=== PATIENT | male | born 1980 | race Hispanic/Latino ===

== ENCOUNTER 2019-12-18 21:09 | Emergency (ER) | payer SELFPAY ==
--- NOTE | 2019-12-18 21:44 | EDPHYS ---
Physician Documentation [facility] Name: Curtis Cantu Age: 39 yrs Sex: Male : 1980 Arrival Date: 12/18/2019 Time: 21:11 Bed 13 Private MD: ED Physician Ciaran Rodas HPI: 12/17 21:46 This 39 yrs old Male presents to ER via Ambulatory with complaints of Eye jr8 Problem, facial twitching. 21:46 Onset: The symptoms/episode began/occurred gradually, 2 day(s) ago. Severity of jr8 symptoms: At their worst the symptoms were mild in the emergency department the symptoms are unchanged. The patient has experienced a previous episode. The patient has not recently seen a physician. 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 Started to have some of the sensations that he had the last time. Also has been having eye and facial twitching when he stresses out since he had bells palsy. Concerned that he may be getting it again . Historical: - Allergies: 21:32 No Known Allergies; vc - Home Meds: 21:32 FOR HIGH BLOOD PRESSURE [Active]; FOR PAULA'S PALSY [Active]; vc - PMHx: 21:32 Hypertension; TIA; PAULA'S PALSY; vc - Immunization history:: Adult Immunizations up to date. - Social history:: Smoking status: Patient reports the use of cigarette tobacco products, smokes one-half pack cigarettes per day. ROS: 21:46 Eyes: Negative for injury, pain, redness, and discharge, ENT: Negative for injury, jr8 pain, and discharge, Neck: Negative for injury, pain, and swelling, Cardiovascular: Negative for chest pain, palpitations, and edema, Respiratory: Negative for shortness of breath, cough, wheezing, and pleuritic chest pain, Abdomen/GI: Negative for abdominal pain, nausea, vomiting, diarrhea, and constipation, Back: Negative for injury and pain, MS/Extremity: Negative for injury and deformity, Skin: Negative for injury, rash, and discoloration. 21:46 Neuro: Positive for facial fasciculations , Negative for altered mental status, dizziness, gait disturbance, headache, hearing loss, loss of consciousness, numbness, seizure activity, speech changes, syncope, near syncope, tingling, tinnitus, tremor, visual changes, weakness. Exam: 21:46 Head/Face: Normocephalic, atraumatic. Eyes: Pupils equal round and reactive to light, jr8 extra-ocular motions intact. Lids and lashes normal. Conjunctiva and sclera are non-icteric and not injected. Cornea within normal limits. Periorbital areas with no swelling, redness, or edema. ENT: Nares patent. No nasal discharge, no septal abnormalities noted. Tympanic membranes are normal and external auditory canals are clear. Oropharynx with no redness, swelling, or masses, exudates, or evidence of obstruction, uvula midline. Mucous membranes moist. Neck: Trachea midline, no thyromegaly or masses palpated, and no cervical lymphadenopathy. Supple, full range of motion without nuchal rigidity, or vertebral point tenderness. No Meningismus. Cardiovascular: Regular rate and rhythm with a normal S1 and S2. No gallops, murmurs, or rubs. Normal PMI, no JVD. No pulse deficits. Respiratory: Lungs have equal breath sounds bilaterally, clear to auscultation and percussion. No rales, rhonchi or wheezes noted. No increased work of breathing, no retractions or nasal flaring. Abdomen/GI: Soft, non-tender, with normal bowel sounds. No distension or tympany. No guarding or rebound. No evidence of tenderness throughout. Back: No spinal tenderness. No costovertebral tenderness. Full range of motion. Skin: Warm, dry with normal turgor. Normal color with no rashes, no lesions, and no evidence of cellulitis. MS/ Extremity: Pulses equal, no cyanosis. Neurovascular intact. Full, normal range of motion. Neuro: Awake and alert, GCS 15, oriented to person, place, time, and situation. Cranial nerves II-XII grossly intact. Motor strength 5/5 in all extremities. Sensory grossly intact. Cerebellar exam normal. Normal gait. Vital Signs: 21:22 BP 160 / 96; Pulse 84; Resp 17; Temp 97.9(O); Pulse Ox 99% on R/A; Weight 99.79 kg; vc Height 6 ft. (182.88 cm); Pain 0/10; 21:22 Body Mass Index 29.84 (99.79 kg, 182.88 cm) vc MDM: 21:30 Patient medically screened. [facility] 21:46 Data reviewed: vital signs, nurses notes, and as a result, I will discharge patient. jr8 Data interpreted: Pulse oximetry: on room air is 99 %. Interpretation: normal. Counseling: I had a detailed discussion with the patient and/or guardian regarding: the historical points, exam findings, and any diagnostic results supporting the discharge/admit diagnosis, the need for outpatient follow up, a family practitioner, to return to the emergency department if symptoms worsen or persist or if there are any questions or concerns that arise at home. ED course: Discussed with patient that he needs to try and rid some of his stress as best as possible. That we cannot control whether or not he can get bells palsy again but that stress can contribute to it. Will give him steroids to take if he starts to truly have s/s of [place] again but otherwise will give benzo for twitching and stress for now to see if it improves. Patient good with this plan . Administered Medications: No medications were administered Disposition: 23:38 Co-signature as Attending Physician, Ciaran Rodas MD. [email or web address] Disposition: 12/18/19 21:44 Discharged to Home. Impression: Fasciculation. - Condition is Stable. - Discharge Instructions: Paula Palsy, Adult. - Prescriptions for Ativan 0.5 mg Oral Tablet - take 1 tablet by ORAL route every 8 hours As needed; 12 tablet. Prednisone 20 mg Oral Tablet - take 3 tablets by ORAL route once daily for 7 days; 21 tablet. - Medication Reconciliation Form, Thank You Letter, Antibiotic Education, Prescription Opioid Use form. - Follow up: Private Physician; When: As needed; Reason: Recheck today's complaints, Continuance of care, Re-evaluation by your physician. - Problem is new. - Symptoms have improved. Signatures: Raul Meza PA PA jr8 Maisha Ruvalcaba RN RN Ciaran Turcios MD MD 7 Corrections: (The following items were deleted from the chart) 21:49 21:44 12/18/2019 21:44 Discharged to Home. Impression: Fasciculation. Condition is vc Stable. Forms are Medication Reconciliation Form, Thank You Letter, Antibiotic Education, Prescription Opioid Use. Follow up: Private Physician; When: As needed; Reason: Recheck today's complaints, Continuance of care, Re-evaluation by your physician. Problem is new. Symptoms have improved. jr8
--- NOTE | 2019-12-18 21:44 | ER ---
Nurse's Notes [facility] Name: Curtis Cantu Age: 39 yrs Sex: Male : 1980 Arrival Date: 12/18/2019 Time: 21:11 Bed 13 Private MD: Diagnosis: Fasciculation Presentation: 12/17 21:22 Chief complaint: Patient states: "On March 27 I had a mini stroke which caused me vc to have bells palsy, I was put on medication to help with the bells palsy and my blood pressure. I moved here about 6 months ago and have not had my medications since. I've started having muscle twitching on the left side of my face and left I, I just wanted to get it checked out. I don't want the left side of my face drooping again.". Coronavirus screen: At this time, the client does not indicate any symptoms associated with coronavirus-19. Ebola Screen: No symptoms or risks identified at this time. Initial Sepsis Screen: Does the patient meet any 2 criteria? No. Patient's initial sepsis screen is negative. Does the patient have a suspected source of infection? No. Patient's initial sepsis screen is negative. Risk Assessment: Do you want to hurt yourself or someone else? Patient reports no desire to harm self or others. Onset of symptoms was December 18, 2019. 21:22 Method Of Arrival: Ambulatory vc 21:22 Acuity: GEOFF 4 vc Historical: - Allergies: 21:32 No Known Allergies; vc - Home Meds: 21:32 FOR HIGH BLOOD PRESSURE [Active]; FOR POLLARD'S PALSY [Active]; vc - PMHx: 21:32 Hypertension; TIA; POLLARD'S PALSY; vc - Immunization history:: Adult Immunizations up to date. - Social history:: Smoking status: Patient reports the use of cigarette tobacco products, smokes one-half pack cigarettes per day. Screenin:33 Abuse screen: Denies threats or abuse. Nutritional screening: No deficits noted. vc Tuberculosis screening: No symptoms or risk factors identified. Fall Risk None identified. Assessment: 21:20 General: Appears in no apparent distress. comfortable, Behavior is calm, cooperative, vc appropriate for age. Pain: Denies pain. Neuro: Level of Consciousness is awake, alert, obeys commands, Oriented to person, place, time, situation, Appropriate for age Speech is normal, Facial symmetry appears normal, TWITCHING NOTED TO LEFT SIDE OF FACE WHEN PATIENT CLOSED LEFT EYE.. 21:20 Cardiovascular: Capillary refill < 3 seconds Patient's skin is warm and dry. vc Respiratory: Airway is patent Respiratory effort is even, unlabored, Respiratory pattern is regular, symmetrical. GI: No signs and/or symptoms were reported involving the gastrointestinal system. : No signs and/or symptoms were reported regarding the genitourinary system. Vital Signs: 21:22 BP 160 / 96; Pulse 84; Resp 17; Temp 97.9(O); Pulse Ox 99% on R/A; Weight 99.79 kg; vc Height 6 ft. (182.88 cm); Pain 0/10; 21:22 Body Mass Index 29.84 (99.79 kg, 182.88 cm) vc ED Course: 21:11 Patient arrived in ED. am2 21:14 Maisha Ruvalcaba RN is Primary Nurse. vc 21:20 Arm band placed on. vc 21:20 Patient has correct armband on for positive identification. Bed in low position. Call vc light in reach. Pulse ox on. NIBP on. 21:26 Triage completed. vc 21:30 Raul Meza PA is PHCP. jr8 21:30 Ciaran Rodas MD is Attending Physician. jr8 21:48 No provider procedures requiring assistance completed. Patient did not have IV access vc during this emergency room visit. Administered Medications: No medications were administered Outcome: 21:44 Discharge ordered by . jr8 21:48 Discharged to home ambulatory. vc 21:48 Condition: good 21:48 Discharge instructions given to patient, Instructed on discharge instructions, follow up and referral plans. medication usage, Demonstrated understanding of instructions, follow-up care, medications, Prescriptions given X 2. 21:49 Patient left the ED. vc Signatures: Raul Meza PA PA jr8 Dora You am2 Maisha Ruvalcaba RN RN vc
[2019-12-18 23:53] VITALS: BP 160/96; TEMP 97.9; O2SAT 99
== END 2019-12-18 21:49 | disposition home or self-care (01) ==
LOC: ER 21:09
DX: R25.3 Fasciculation (principal); I10 Essential (primary) hypertension; F17.210 Nicotine dependence, cigarettes, uncomplicated
CPT/HCPCS: 99283

== ENCOUNTER 2020-06-26 13:44 | Emergency (ER) | payer OTHER, SELFPAY ==
[2020-06-26 15:59] LABS: SARS-COV-2 RT PCR NEGATIVE (NEGATIVE)
--- NOTE | 2020-06-26 16:52 | EDPHYS ---
Physician Documentation [facility] Name: Curtis Cantu Age: 39 yrs Sex: Male : 1980 Arrival Date: 06/26/2020 Time: 13:46 Bed 23 Private MD: ED Physician Tacho Hendrix HPI: 06/26 18:52 This 39 yrs old Male presents to ER via Ambulatory with complaints of kb Weakness, Fever. 18:52 The patient or guardian reports flu symptoms, low-grade fever, myalgias, no appetite. kb Onset: The symptoms/episode began/occurred 2 day(s) ago. Severity of symptoms: At their worst the symptoms were moderate, in the emergency department the symptoms are unchanged. Modifying factors: The symptoms are alleviated by nothing, the symptoms are aggravated by nothing. Associated signs and symptoms: Pertinent positives: fever, Pertinent negatives: chest pain, diarrhea, ear ache, nausea, rhinorrhea, sore throat, vomiting. The patient has not experienced similar symptoms in the past. The patient has not recently seen a physician. Pt reports bodyaches, fever, chills, malaise, fatigue for 2 days. States he gets these symptoms every 2 months or so. Has a dr's appt tomorrow. Historical: - Allergies: 14:14 No Known Allergies; ca1 - PMHx: 14:14 Paula's Palsy; Hypertension; TIA; ca1 - PSHx: 14:14 None; ca1 - Immunization history:: Flu vaccine is not up to date. - Social history:: Smoking status: Patient reports the use of cigarette tobacco products, denies chronic smoking, but will smoke occasionally. ROS: 18:50 Cardiovascular: Negative for chest pain, palpitations, and edema, Respiratory: Negative kb for shortness of breath, cough, wheezing, and pleuritic chest pain, Abdomen/GI: Negative for abdominal pain, nausea, vomiting, diarrhea, and constipation, MS/Extremity: Negative for injury and deformity, Skin: Negative for injury, rash, and discoloration, Neuro: Negative for headache, weakness, numbness, tingling, and seizure. 18:50 Constitutional: Positive for body aches, chills, fatigue, fever, malaise, poor PO intake. Exam: 18:52 Constitutional: This is a well developed, well nourished patient who is awake, alert, kb and in no acute distress. Head/Face: Normocephalic, atraumatic. Respiratory: Respirations even and unlabored. No increased work of breathing, no retractions or nasal flaring. Skin: Warm, dry with normal turgor. Normal color. MS/ Extremity: Pulses equal, no cyanosis. Neurovascular intact. Full, normal range of motion. Neuro: Awake and alert, GCS 15, oriented to person, place, time, and situation. Moves all extremities. Normal gait. Vital Signs: 14:09 BP 128 / 89; Pulse 75; Resp 16 S; Temp 97.6(TE); Pulse Ox 96% on R/A; Weight 104.33 kg ca1 (R); Height 5 ft. 11 in. (180.34 cm) (R); Pain 7/10; 16:58 BP 132 / 91; Pulse 89; Resp 18; Pulse Ox 95% on R/A; zb 14:09 Body Mass Index 32.08 (104.33 kg, 180.34 cm) ca1 MDM: 16:40 Patient medically screened. kb 18:50 Data reviewed: vital signs, nurses notes. Data interpreted: Pulse oximetry: on room air kb is 95 %. Interpretation: normal. Counseling: I had a detailed discussion with the patient and/or guardian regarding: the historical points, exam findings, and any diagnostic results supporting the discharge/admit diagnosis, lab results, the need for outpatient follow up, a family practitioner, to return to the emergency department if symptoms worsen or persist or if there are any questions or concerns that arise at home. 06/26 15:59 Order name: COVID-19/FLU A+B; Complete Time: 16:41 EDMS Administered Medications: No medications were administered Disposition: 06/27 08:02 Co-signature as Attending Physician, Tacho Hendrix MD I agree with the assessment and kdr plan of care. Disposition: 06/26/20 16:51 Discharged to Home. Impression: Malaise and fatigue. - Condition is Stable. - Discharge Instructions: Viral Respiratory Infection, [id number]. - Medication Reconciliation Form, Thank You Letter, Antibiotic Education, Prescription Opioid Use form. - Follow up: Emergency Department; When: As needed; Reason: Worsening of condition. Follow up: Private Physician; When: 2 - 3 days; Reason: Recheck today's complaints, Continuance of care, Re-evaluation by your physician. Signatures: Dispatcher [employer] EDPA Jennifer Oliva, UTILITY MECHANIC-C UTILITY MECHANIC-Tacho Morgan MD MD kdr Acob, Cheryl, RN RN ca1 Estephania Chow RN RN zb Corrections: (The following items were deleted from the chart) 06/26 15:15 14:16 CORONAVIRUS+MR.LAB.BRZ ordered. EDPA EDMS 15:16 14:16 Influenza Screen (A \T\ B)+BA.LAB.BRZ ordered. EDPA EDMS 17:05 16:51 06/26/2020 16:51 Discharged to Home. Impression: Malaise and fatigue. Condition zb is Stable. Forms are Medication Reconciliation Form, Thank You Letter, Antibiotic Education, Prescription Opioid Use. Follow up: Emergency Department; When: As needed; Reason: Worsening of condition. Follow up: Private Physician; When: 2 - 3 days; Reason: Recheck today's complaints, Continuance of care, Re-evaluation by your physician. kb
--- NOTE | 2020-06-26 16:52 | ER ---
Nurse's Notes [facility] Name: Curtis Cantu Age: 39 yrs Sex: Male : 1980 Arrival Date: 06/26/2020 Time: 13:46 Bed 23 Private MD: Diagnosis: Malaise and fatigue Presentation: 06/26 14:09 Chief complaint: Patient states: Started Wednesday morning, feeling weak, sweats, ca1 fatigued, chills, body aches, cough and congestion. Denies fever. Coronavirus screen: Client denies travel out of the [place] in the last 14 days. congestion, cough unrelated to allergies, fatigue, muscle pain, Client presents with at least one sign or symptom that may indicate coronavirus-19. Standard/surgical mask placed on the client. Provider contacted for isolation considerations. Ebola Screen: Patient negative for fever greater than or equal to 101.5 degrees Fahrenheit, and additional compatible Ebola Virus Disease symptoms Patient denies exposure to infectious person. Patient denies travel to an Ebola-affected area in the 21 days before illness onset. No symptoms or risks identified at this time. Initial Sepsis Screen: Does the patient meet any 2 criteria? No. Patient's initial sepsis screen is negative. Does the patient have a suspected source of infection? No. Patient's initial sepsis screen is negative. Risk Assessment: Do you want to hurt yourself or someone else? Patient reports no desire to harm self or others. Onset of symptoms was June 26, 2020. 14:09 Method Of Arrival: Ambulatory ca1 14:09 Acuity: GEOFF 4 ca1 Historical: - Allergies: 14:14 No Known Allergies; ca1 - PMHx: 14:14 Paula's Palsy; Hypertension; TIA; ca1 - PSHx: 14:14 None; ca1 - Immunization history:: Flu vaccine is not up to date. - Social history:: Smoking status: Patient reports the use of cigarette tobacco products, denies chronic smoking, but will smoke occasionally. Screenin:58 Abuse screen: Denies threats or abuse. Denies injuries from another. Nutritional zb screening: No deficits noted. Tuberculosis screening: No symptoms or risk factors identified. Fall Risk None identified. Assessment: 16:56 General: Appears in no apparent distress. Behavior is calm, cooperative, appropriate zb for age, Reports chills for 1-2 days, fever for 1-2 days, feeling ill for 1-2 days. Pain: Denies pain. Neuro: Level of Consciousness is awake, alert, obeys commands. Cardiovascular: Capillary refill < 3 seconds in bilateral fingers Patient's skin is warm and dry. Respiratory: Airway is patent Respiratory effort is even, unlabored, Respiratory pattern is regular, symmetrical, Breath sounds are clear bilaterally. Respiratory: Reports shortness of breath on exertion cough that is dry, persistent. GI: No signs and/or symptoms were reported involving the gastrointestinal system. EENT: Reports nasal congestion. EENT:. Derm: Skin is intact, is healthy with good turgor, Skin is dry, Skin is normal, Skin temperature is warm. Musculoskeletal: Range of motion: intact in all extremities. Vital Signs: 14:09 BP 128 / 89; Pulse 75; Resp 16 S; Temp 97.6(TE); Pulse Ox 96% on R/A; Weight 104.33 kg ca1 (R); Height 5 ft. 11 in. (180.34 cm) (R); Pain 7/10; 16:58 BP 132 / 91; Pulse 89; Resp 18; Pulse Ox 95% on R/A; zb 14:09 Body Mass Index 32.08 (104.33 kg, 180.34 cm) ca1 ED Course: 13:46 Patient arrived in ED. as 14:13 Triage completed. ca1 14:14 Arm band placed on right wrist. ca1 16:40 Jennifer Oliva FNP-C is [facility]. kb 16:40 Tacho Hendrix MD is Attending Physician. kb 16:56 Estephania Chow RN is Primary Nurse. zb 16:58 Patient has correct armband on for positive identification. Pulse ox on. NIBP on. Door zb closed. Noise minimized. Warm blanket given. 16:59 No provider procedures requiring assistance completed. Patient did not have IV access zb during this emergency room visit. Administered Medications: No medications were administered Outcome: 16:51 Discharge ordered by . kb 16:59 Discharged to home ambulatory. zb 16:59 Condition: stable 16:59 Discharge instructions given to patient, Instructed on discharge instructions, follow up and referral plans. Demonstrated understanding of instructions, follow-up care. 17:05 Patient left the ED. zb Signatures: Jennifer Oliva FNP-C FNP-Erma Potts as AcYazmin javed RN RN ca1 Estephania Chow RN RN zb Corrections: (The following items were deleted from the chart) 16:59 16:59 Discharge instructions given to patient, Instructed on discharge instructions, zb follow up and referral plans. Demonstrated understanding of instructions, follow-up care, zb
[2020-06-26 17:15] VITALS: TEMP 97.6
[2020-06-26 17:17] VITALS: BP 132/91; O2SAT 95
== END 2020-06-26 17:05 | disposition home or self-care (01) ==
LOC: ER 13:44
DX: R53.81 Other malaise (principal); R53.83 Other fatigue; Z20.822 Contact with and (suspected) exposure to COVID-19; I10 Essential (primary) hypertension; F17.210 Nicotine dependence, cigarettes, uncomplicated
CPT/HCPCS: 0240U; 99283

== ENCOUNTER 2020-07-23 15:38 | Emergency (ER) | payer OTHER ==
[2020-07-23] MEDS ORDERED: LORAZEPAM 1 MG TABLET ONE (18:10)
--- NOTE | 2020-07-23 18:27 | ER ---
Nurse's Notes [facility] Name: Curtis Cantu Age: 39 yrs Sex: Male : 1980 Arrival Date: 07/23/2020 Time: 15:40 Bed DIS3 Private MD: Gagan Johnson Diagnosis: Anxiety disorder, unspecified Presentation: 07/23 16:12 Chief complaint: Patient states: is having anxiety and panic attacks, was prescribed iw some pills but they just make him feel worse, has been happening for 4-6 months. Coronavirus screen: At this time, the client does not indicate any symptoms associated with coronavirus-19. Ebola Screen: Patient negative for fever greater than or equal to 101.5 degrees Fahrenheit, and additional compatible Ebola Virus Disease symptoms Patient denies exposure to infectious person. Patient denies travel to an Ebola-affected area in the 21 days before illness onset. No symptoms or risks identified at this time. Initial Sepsis Screen: Does the patient meet any 2 criteria? No. Patient's initial sepsis screen is negative. Does the patient have a suspected source of infection? No. Patient's initial sepsis screen is negative. Risk Assessment: Do you want to hurt yourself or someone else? Patient reports no desire to harm self or others. Onset of symptoms was April 2020. 16:12 Method Of Arrival: Ambulatory iw 16:12 Acuity: GEOFF 4 iw Historical: - Allergies: 16:14 No Known Allergies; iw - PMHx: 16:14 Paula's Palsy; Hypertension; TIA; Anxiety; iw - PSHx: 16:14 foot; iw - Immunization history:: Adult Immunizations not up to date. - Social history:: Smoking status: Patient reports the use of cigarette tobacco products, denies chronic smoking, but will smoke occasionally. Screenin:17 Abuse screen: Denies threats or abuse. Denies injuries from another. Nutritional ss screening: No deficits noted. Tuberculosis screening: Never had TB. Fall Risk None identified. Assessment: 17:00 General: Appears in no apparent distress. comfortable, Behavior is calm, cooperative, ss Reports off and on anxiety for months. Pain: Denies pain. Neuro: Level of Consciousness is awake, alert, obeys commands, Oriented to person, place, time, situation. Cardiovascular: Capillary refill < 3 seconds is brisk in bilateral fingers Patient's skin is warm and dry. Respiratory: Airway is patent Respiratory effort is even, unlabored, Respiratory pattern is regular, symmetrical. GI: No signs and/or symptoms were reported involving the gastrointestinal system. EENT: Nares are clear Oral mucosa is moist. Derm: Skin is intact, is healthy with good turgor, Skin is dry, Skin is pink, warm \T\ dry. normal. Musculoskeletal: Circulation, motion, and sensation intact. Range of motion: intact in all extremities, Swelling absent. 18:35 Reassessment: Patient appears in no apparent distress at this time. Patient and/or ss family updated on plan of care and expected duration. Pain level reassessed. Patient is alert, oriented x 3, equal unlabored respirations, skin warm/dry/pink. Patient states feeling better. Patient states symptoms have improved. Vital Signs: 16:12 BP 140 / 106; Pulse 88; Resp 16; Temp 98.4; Pulse Ox 99% on R/A; Weight 104.33 kg; iw Height 5 ft. 11 in. (180.34 cm); 16:12 Body Mass Index 32.08 (104.33 kg, 180.34 cm) iw ED Course: 15:40 Patient arrived in ED. am2 15:40 Gagan Johnson MD is Private Physician. am2 16:13 Triage completed. iw 16:14 Arm band placed on. iw 17:00 Marquis Moraes PA is PHCP. jmm 17:00 Carroll Padron MD is Attending Physician. jmm 17:17 Patient has correct armband on for positive identification. Call light in reach. ss 17:17 Patient maintains SpO2 saturation greater than 95% on room air. ss 17:26 Naima Barillas, LEOLA is Primary Nurse. ss 18:26 Toño Esparza MD is Referral Physician. [facility] 18:36 No provider procedures requiring assistance completed. Patient did not have IV access ss during this emergency room visit. Administered Medications: 17:54 Drug: Ativan (LORazepam) 1 mg Route: PO; ss 18:15 Follow up: Response: No adverse reaction; Anxiety decreased ss Outcome: 18:27 Discharge ordered by MD. [facility] 18:36 Discharged to home ambulatory. ss 18:36 Condition: improved 18:36 Discharge instructions given to patient, family, Instructed on discharge instructions, follow up and referral plans. Demonstrated understanding of instructions, follow-up care. 18:40 Patient left the ED. ss Signatures: Marquis Moraes PA PA jmm Williams, Irene RN RN Naima Barillas RN RN Dora Whitmore
--- NOTE | 2020-07-23 18:28 | EDPHYS ---
Physician Documentation [facility] Name: Curtis Cantu Age: 39 yrs Sex: Male : 1980 Arrival Date: 07/23/2020 Time: 15:40 Bed DIS3 Private MD: Gagan Johnson ED Physician Carroll Padron HPI: 07/23 17:42 This 39 yrs old Male presents to ER via Ambulatory with complaints of Anxiety. jmm 17:42 The patient presents to the emergency department with anxiety. Onset: The jmm symptoms/episode began/occurred today. Associated signs and symptoms: Pertinent positives; palpitations, Pertinent negatives: chest pain, hallucinations, shortness of breath. This is a 39 year old male with a history of bells palsy that presents to the ED with complaints of panic attack today while he was in the shower. Patient states having ongoing palpitations for the past 7 months. Patient denies chest pain. Patient was prescribed an anxiolytic but states it only makes him dizzy and tired. . 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 - Social history:: Smoking status: Patient reports the use of cigarette tobacco products, denies chronic smoking, but will smoke occasionally. ROS: 17:42 Constitutional: Negative for fever, chills, and weight loss. jmm 17:42 Cardiovascular: Positive for palpitations. 17:42 Psych: Positive for anxiety. 17:42 All other systems are negative. Exam: 17:42 Constitutional: This is a well developed, well nourished patient who is awake, alert, jmm and in no acute distress. Head/Face: atraumatic. Eyes: EOMI, no conjunctival erythema appreciated ENT: Moist Mucus Membranes Neck: Trachea midline, Supple Chest/axilla: Normal chest wall appearance and motion. Cardiovascular: Regular rate and rhythm. No edema appreciated Respiratory: Normal respirations, no respiratory distress appreciated Abdomen/GI: Non distended, soft Back: Normal ROM Skin: General appearance color normal MS/ Extremity: Moves all extremities, no obvious deformities appreciated, no edema noted to the lower extremities Neuro: Awake and alert, normal gait Psych: Behavior is normal, Mood is normal, Patient is cooperative and pleasant Vital Signs: 16:12 BP 140 / 106; Pulse 88; Resp 16; Temp 98.4; Pulse Ox 99% on R/A; Weight 104.33 kg; iw Height 5 ft. 11 in. (180.34 cm); 16:12 Body Mass Index 32.08 (104.33 kg, 180.34 cm) iw MDM: 17:42 Patient medically screened. [facility] 18:26 Data reviewed: vital signs, nurses notes. Counseling: I had a detailed discussion with aide the patient and/or guardian regarding: the historical points, exam findings, and any diagnostic results supporting the discharge/admit diagnosis, the need for outpatient follow up, to return to the emergency department if symptoms worsen or persist or if there are any questions or concerns that arise at home. ED course: Patient states feeling much better after ativan po. Will given patient f/u with cardiology. Patient is advised to return to the ED if symptoms worsen or if he develops chest pain or shortness of breath. Patient understood and agrees with the plan of care. . Administered Medications: 17:54 Drug: Ativan (LORazepam) 1 mg Route: PO; ss 18:15 Follow up: Response: No adverse reaction; Anxiety decreased ss Disposition: 18:55 Co-signature as Attending Physician, Carroll Padron MD. rn Disposition: 07/23/20 18:27 Discharged to Home. Impression: Anxiety disorder, unspecified. - Condition is Stable. - Discharge Instructions: Panic Attacks. - Medication Reconciliation Form, Thank You Letter, Antibiotic Education, Prescription Opioid Use form. - Follow up: Toño Esaprza MD; When: 2 - 3 days; Reason: Recheck today's complaints, Continuance of care, Re-evaluation by your physician. Signatures: Marquis Moraes PA PA [facility] Norma Carrasco RN RN Carroll Padron MD MD rn Smirch, Shelby, RN RN ss Corrections: (The following items were deleted from the chart) 18:40 18:27 07/23/2020 18:27 Discharged to Home. Impression: Anxiety disorder, unspecified. ss Condition is Stable. Forms are Medication Reconciliation Form, Thank You Letter, Antibiotic Education, Prescription Opioid Use. Follow up: Toño Esparza; When: 2 - 3 days; Reason: Recheck today's complaints, Continuance of care, Re-evaluation by your physician. aide
[2020-07-23 19:11] VITALS: BP 140/106; TEMP 98.4; O2SAT 99
== END 2020-07-23 18:40 | disposition home or self-care (01) ==
LOC: ER 15:38
DX: F41.9 Anxiety disorder, unspecified (principal); I10 Essential (primary) hypertension; F17.210 Nicotine dependence, cigarettes, uncomplicated
CPT/HCPCS: 99284

== ENCOUNTER 2020-10-23 18:26 | Emergency (ER) | payer OTHER ==
[2020-10-23] MEDS ORDERED: ONDANSETRON 4 MG (ODT) TAB ONE (19:19)
[2020-10-23 20:55] LABS: Absolute Lymphocytes (CBC) 0.9 K/uL (0.7-4.9); Basophils % 0.3 % (0-1.3); Hematocrit 47.8 % (39.6-49.0); MPV 7.7 fL (7.6-11.3); RBC Red Blood Cell Count 5.13 M/uL (4.33-5.43)
[2020-10-23] MEDS ORDERED: PROMETHAZINE INJ 25 MG/ML AMP ONE (21:06)
[2020-10-23] MEDS ORDERED: NA CHLORIDE 0.9% 2,000 ML ONE (21:07)
[2020-10-23 21:11] LABS: Albumin 3.9 g/dL (3.4-5.0); Bilirubin Direct 0.1 mg/dL (0-0.2); Bilirubin Total 0.5 mg/dL (0.2-1.0); Potassium 4.2 mmol/L (3.5-5.1); Protein, Total 8.3 g/dL (6.4-8.2)
--- NOTE | 2020-10-23 21:13 | RAD REPORT ---
EXAM DESCRIPTION: CTAbdomen Pelvis W Contrast - 10/23/2020 9:04 pm CLINICAL HISTORY: Abdominal pain. Abd pain;Nausea / vomiting COMPARISON: No comparisons TECHNIQUE: Biphasic CT imaging of the abdomen and pelvis was performed with 100 ml non-ionic IV cont rast. All CT scans are performed using dose optimization technique as appropriate and may include automated exposure control or mA/KV adjustment according to patient size. FINDINGS: The lung bases are clear.Circumferentially thickened distal esophagus could reflect reflex es esophagitis. Too small to characterize low-density lesion in the right hepatic lobe is likely benign. Right upper pole renal lesion, also statistically benign. No pancreatic masses are identified. No ductal dilatati on. The adrenal glands are unremarkable. The spleen is unremarkable. No bowel obstruction is identifi ed. Bladder wall thickening which is nonspecific but appears chronic. Normal appendix. No ureteral ca lculi. No hydronephrosis. No acute osseous abnormality. There is some nonspecific fluid within the sm all bowel. IMPRESSION: Nonspecific fluid within the small bowel could represent a gastroenteritis but no bowel obstruction is identified and the appendix is normal.
[2020-10-23] MEDS ORDERED: DIPHENOX/ATROP SULF 1 TAB PO ONE (21:43)
[2020-10-23 21:59] LABS: Blood Morphology Comment NOT SEEN (NOT SEEN); Platelet Estimate ADEQ; White Blood Cell Scan OK (OK)
[2020-10-23] MEDS ORDERED: NA CHLORIDE 0.9% 50 ML ONE (22:30)
[2020-10-23] MEDS ORDERED: MEPERIDINE HCL 25 MG/ML SYR ONE (22:30)
[2020-10-23] MEDS ORDERED: ONDANSETRON 4 MG/2 ML VIAL ONE (23:40)
--- NOTE | 2020-10-24 00:55 | EDPHYS ---
Physician Documentation [facility] Name: Curtis Cantu Age: 40 yrs Sex: Male : 1980 Arrival Date: 10/23/2020 Time: 18:30 Bed 6 Private MD: ED Physician Carroll Padron HPI: 10/24 00:48 This 40 yrs old Male presents to ER via Ambulatory with complaints of rn Abdominal Pain, Vomiting/Diarrhea. 00:48 The patient presents to the emergency department with nausea, vomiting, diarrhea. rn Onset: The symptoms/episode began/occurred 5 day(s) ago. Possible causes: unknown. The symptoms are aggravated by nothing. The symptoms are alleviated by nothing. Associated signs and symptoms: Pertinent positives: diarrhea, nausea, vomiting, Pertinent negatives: fever, GI bleeding. Severity of symptoms: At their worst the symptoms were moderate in the emergency department the symptoms are unchanged. The patient has not experienced similar symptoms in the past. The patient has not recently seen a physician. Patient reports 5 to 6 days of nausea vomiting and diarrhea. Significant other also with identical symptoms but she has gotten over it. No fever or GI bleeding. Patient reports abdominal cramping, no focal tenderness or pain. Took Zofran at home with mild improvement but still vomiting so came in. Historical: - Allergies: 10/23 18:54 No Known Allergies; ca1 - PMHx: 18:54 Anxiety; Paula's Palsy; Hypertension; TIA; ca1 - PSHx: 18:54 None; ca1 - Immunization history:: Client reports having NOT received the Covid vaccine. - Social history:: Smoking status: Patient reports the use of cigarette tobacco products, denies chronic smoking, but will smoke occasionally. - Family history:: not pertinent. - Hospitalizations: : No recent hospitalization is reported. ROS: 10/24 00:48 Constitutional: Negative for fever, chills, and weight loss, Eyes: Negative for injury, rn pain, redness, and discharge, Neck: Negative for injury, pain, and swelling, Cardiovascular: Negative for chest pain, palpitations, and edema, Respiratory: Negative for shortness of breath, cough, wheezing, and pleuritic chest pain, Abdomen/GI: Negative for constipation, Back: Negative for injury and pain, MS/Extremity: Negative for injury and deformity, Skin: Negative for injury, rash, and discoloration, Neuro: Negative for headache, numbness, tingling, and seizure. Exam: 00:48 Constitutional: This is a well developed, well nourished patient who is awake, alert, rn and in no acute distress. Head/Face: Normocephalic, atraumatic. Eyes: Pupils equal round and reactive to light, extra-ocular motions intact. Lids and lashes normal. Conjunctiva and sclera are non-icteric and not injected. Cornea within normal limits. Periorbital areas with no swelling, redness, or edema. ENT: Dry mucous membranes Cardiovascular: Regular rate and rhythm. No pulse deficits. Respiratory: No increased work of breathing, no retractions or nasal flaring. Abdomen/GI: Soft, non-tender Skin: Warm, dry MS/ Extremity: Pulses equal, no cyanosis. Neurovascular intact. Full, normal range of motion. Equal circumference. Neuro: Awake and alert, GCS 15 Vital Signs: 10/23 18:52 BP 136 / 94; Pulse 99; Resp 18 S; Temp 97.9; Pulse Ox 95% on R/A; Weight 104.33 kg (R); ca1 Height 6 ft. 0 in. (182.88 cm) (R); Pain 7/10; 22:16 BP 148 / 98; Pulse 81; Resp 16 S; Pulse Ox 96% on R/A; ad5 23:38 BP 136 / 84; Pulse 74; Resp 16 S; Pulse Ox 95% on R/A; ad5 10/24 00:48 BP 140 / 80; Pulse 80; Resp 18; Pulse Ox 99% ; ea 10/23 18:52 Body Mass Index 31.19 (104.33 kg, 182.88 cm) ca1 MDM: 10/23 20:34 Patient medically screened. rn 10/24 00:48 Differential diagnosis: gastritis, cholecystitis, pancreatitis, appendicitis, rn diverticulitis, viral gastroenteritis, gastroenteritis. Data reviewed: vital signs, nurses notes, lab test result(s), radiologic studies, CT scan, and as a result, I will discharge patient. Counseling: I had a detailed discussion with the patient and/or guardian regarding: the historical points, exam findings, and any diagnostic results supporting the discharge/admit diagnosis, lab results, radiology results, the need for outpatient follow up, to return to the emergency department if symptoms worsen or persist or if there are any questions or concerns that arise at home. Response to treatment: the patient's symptoms have markedly improved after treatment, the patient is now symptom free, patient is well hydrated. and as a result, I will discharge patient. Special discussion: Based on the patient's Hx, exam, and Dx evaluation, there is no indication for emergent surgery or inpatient Tx. It is understood by the patient/guardian that if the Sx's persist or worsen they need to return immediately for re-evaluation. I discussed with the patient/guardian in detail that at this point there is no indication for admission to the hospital. It is understood, however, that if the symptoms persist or worsen the patient needs to return immediately for re-evaluation. Based on the history and exam findings, there is no indication for further emergent testing or inpatient evaluation. I discussed with the patient/guardian the need to see the marketing mgr for further evaluation of the symptoms. ED course: Patient improved no longer nauseous or vomiting will DC home. Recommend GI follow-up as on CAT scan were already seeing signs of GERD and esophagitis.. 00:48 ED course: Recommend daily antacid. rn 10/23 20:44 Order name: Basic Metabolic Panel rn 10/23 20:44 Order name: CBC with Diff rn 10/23 20:44 Order name: Hepatic Function rn 10/23 20:44 Order name: Lipase; Complete Time: 21:17 rn 10/23 20:44 Order name: Flu; Complete Time: 22:05 rn 10/23 20:44 Order name: CT Abd/Pelvis - IV Contrast Only; Complete Time: 21:17 rn 10/23 20:45 Order name: Basic Metabolic Panel; Complete Time: 21:17 EDUT 10/23 20:45 Order name: CBC with Automated Diff EDUT 10/23 20:45 Order name: Liver (Hepatic) Function; Complete Time: 21:17 EDUT 10/23 21:59 Order name: CBC Smear Scan EDUT 10/23 22:09 Order name: SARS-COV-2 RT PCR; Complete Time: 22:26 EDUT 10/23 20:44 Order name: IV Saline Lock; Complete Time: 20:54 rn 10/23 20:44 Order name: Labs collected and sent; Complete Time: 20:55 rn Administered Medications: 10/23 18:57 Drug: Ondansetron 4 mg Route: PO; ca1 22:15 Follow up: Response: No adverse reaction ad5 20:49 Drug: NS 0.9% 1000 ml Route: IV; Rate: 1000 ml; Site: right antecubital; ea 22:14 Follow up: IV Status: Completed infusion; IV Intake: 1000ml ad5 20:49 Drug: Phenergan (promethazine) 12.5 mg Route: IVP; Site: right antecubital; ea 22:14 Follow up: Response: No adverse reaction; Nausea is decreased; Vomiting decreased ad5 21:22 Drug: LoMOTIL (diphenoxylate-atropine) 2 tabs Route: PO; ea 22:14 Follow up: Response: No adverse reaction ad5 22:14 Drug: Demerol (meperidine) 25 mg Route: IVP; Site: right antecubital; ad5 23:15 Follow up: Response: No adverse reaction; Pain is decreased ad5 23:21 Drug: Zofran (Ondansetron) 4 mg Route: IVP; Site: right antecubital; ea 10/24 00:48 Follow up: Response: No adverse reaction ea 10/23 23:21 Drug: NS 0.9% 1000 ml Route: IV; Rate: 1000 ml; Site: right antecubital; ea 10/24 01:05 Follow up: Response: No adverse reaction; IV Status: Completed infusion; IV Intake: ea 1000ml Disposition Summary: 10/24/20 00:54 Discharge Ordered Location: Home rn Problem: new rn Symptoms: have improved rn Condition: Stable rn Diagnosis - Vomiting rn - Gastro-esophageal reflux disease with esophagitis rn Followup: rn - With: Private Physician - When: As needed - Reason: Recheck today's complaints, Re-evaluation by your physician Discharge Instructions: - Discharge Summary Sheet rn - Food Choices for Gastroesophageal Reflux Disease, Adult rn - Esophagitis rn - Gastroesophageal Reflux Disease, Adult rn Forms: - Medication Reconciliation Form rn - Thank You Letter rn - Antibiotic rn or lvn - Prescription Opioid Use rn - Work release form ea - Family Work Release ea Prescriptions: - promethazine 25 mg Oral Tablet - take 1 tablet by ORAL route every 6 hours As needed; 20 tablet; Refills: 0, rn Product Selection Permitted Signatures: Dispatcher [employer] EDCarroll Lovelace MD MD rn Antunez, Elena, RN RN ea Acob, Cheryl RN RN ca1 Rory Zhang Corrections: (The following items were deleted from the chart) 10/23 21:03 20:45 CORONAVIRUS+BRZ ordered. EDMS EDMS
--- NOTE | 2020-10-24 00:55 | ER ---
Nurse's Notes [facility] Name: Curtis Cantu Age: 40 yrs Sex: Male : 1980 Arrival Date: 10/23/2020 Time: 18:30 Bed 6 Private MD: Diagnosis: Vomiting;Gastro-esophageal reflux disease with esophagitis Presentation: 10/23 18:52 Chief complaint: Patient states: N/V/D 4 - 5 days. Pt actively vomiting in triage. ca1 Abdominal pain, mainly at the center. Coronavirus screen: Client denies travel out of the [place] in the last 14 days. nausea, vomiting. Client presents with at least one sign or symptom that may indicate coronavirus-19. Standard/surgical mask placed on the client. Provider contacted for isolation considerations. Ebola Screen: Patient negative for fever greater than or equal to 101.5 degrees Fahrenheit, and additional compatible Ebola Virus Disease symptoms Patient denies exposure to infectious person. Patient denies travel to an Ebola-affected area in the 21 days before illness onset. No symptoms or risks identified at this time. Initial Sepsis Screen: Does the patient meet any 2 criteria? No. Patient's initial sepsis screen is negative. Does the patient have a suspected source of infection? No. Patient's initial sepsis screen is negative. Risk Assessment: Do you want to hurt yourself or someone else? Patient reports no desire to harm self or others. Onset of symptoms was October 23, 2020. 18:52 Method Of Arrival: Ambulatory ca1 18:52 Acuity: GEOFF 3 ca1 Historical: - Allergies: 18:54 No Known Allergies; ca1 - PMHx: 18:54 Anxiety; Paula's Palsy; Hypertension; TIA; ca1 - PSHx: 18:54 None; ca1 - Immunization history:: Client reports having NOT received the Covid vaccine. - Social history:: Smoking status: Patient reports the use of cigarette tobacco products, denies chronic smoking, but will smoke occasionally. - Family history:: not pertinent. - Hospitalizations: : No recent hospitalization is reported. Screenin:55 Abuse screen: Denies threats or abuse. Nutritional screening: No deficits noted. ea Tuberculosis screening: No symptoms or risk factors identified. Fall Risk None identified. Assessment: 20:34 General: Appears uncomfortable, Behavior is calm, cooperative, appropriate for age. ea Pain: Complains of pain in abdomen. Neuro: Level of Consciousness is awake, alert, obeys commands, Oriented to person, place, time. Respiratory: Airway is patent Respiratory effort is even, unlabored, Respiratory pattern is regular, symmetrical. GI: Abdomen is non-distended. Derm: Skin is intact, Skin is pink, warm \T\ dry. 22:15 Reassessment: Patient and/or family updated on plan of care and expected duration. Pain ad5 level reassessed. Patient is alert, oriented x 3, equal unlabored respirations, skin warm/dry/pink. Pt reports continued abd pain, resting comfortably in ED stretcher, resp even/unlabored. S.O. remains at bedside, NAD noted, will continue to monitor. 23:38 Reassessment: Patient appears in no apparent distress at this time. Patient and/or ad5 family updated on plan of care and expected duration. Pain level reassessed. Patient is alert, oriented x 3, equal unlabored respirations, skin warm/dry/pink. 10/24 00:47 Reassessment: Patient and/or family updated on plan of care and expected duration. Pain ea level reassessed. Patient is alert, oriented x 3, equal unlabored respirations, skin warm/dry/pink. Vital Signs: 10/23 18:52 BP 136 / 94; Pulse 99; Resp 18 S; Temp 97.9; Pulse Ox 95% on R/A; Weight 104.33 kg (R); ca1 Height 6 ft. 0 in. (182.88 cm) (R); Pain 7/10; 22:16 BP 148 / 98; Pulse 81; Resp 16 S; Pulse Ox 96% on R/A; ad5 23:38 BP 136 / 84; Pulse 74; Resp 16 S; Pulse Ox 95% on R/A; ad5 10/24 00:48 BP 140 / 80; Pulse 80; Resp 18; Pulse Ox 99% ; ea 10/23 18:52 Body Mass Index 31.19 (104.33 kg, 182.88 cm) ca1 ED Course: 10/23 18:30 Patient arrived in ED. mr 18:54 Triage completed. ca1 18:54 Arm band placed on right wrist. ca1 20:34 Helen Bravo, LEOLA is Primary Nurse. ea 20:34 Carroll Padron MD is Attending Physician. rn 20:55 Patient has correct armband on for positive identification. Bed in low position. Call ea light in reach. Side rails up X2. 21:00 Inserted saline lock: 20 gauge in right antecubital area, using aseptic technique. ea 21:04 CT Abd/Pelvis - IV Contrast Only In Process Unspecified. EDMS 10/24 00:48 No provider procedures requiring assistance completed. ea 01:04 IV discontinued, intact, bleeding controlled, No redness/swelling at site. Pressure ea dressing applied. Administered Medications: 10/23 18:57 Drug: Ondansetron 4 mg Route: PO; ca1 22:15 Follow up: Response: No adverse reaction ad5 20:49 Drug: NS 0.9% 1000 ml Route: IV; Rate: 1000 ml; Site: right antecubital; ea 22:14 Follow up: IV Status: Completed infusion; IV Intake: 1000ml ad5 20:49 Drug: Phenergan (promethazine) 12.5 mg Route: IVP; Site: right antecubital; ea 22:14 Follow up: Response: No adverse reaction; Nausea is decreased; Vomiting decreased ad5 21:22 Drug: LoMOTIL (diphenoxylate-atropine) 2 tabs Route: PO; ea 22:14 Follow up: Response: No adverse reaction ad5 22:14 Drug: Demerol (meperidine) 25 mg Route: IVP; Site: right antecubital; ad5 23:15 Follow up: Response: No adverse reaction; Pain is decreased ad5 23:21 Drug: Zofran (Ondansetron) 4 mg Route: IVP; Site: right antecubital; ea 10/24 00:48 Follow up: Response: No adverse reaction ea 10/23 23:21 Drug: NS 0.9% 1000 ml Route: IV; Rate: 1000 ml; Site: right antecubital; ea 10/24 01:05 Follow up: Response: No adverse reaction; IV Status: Completed infusion; IV Intake: ea 1000ml Intake: 10/23 22:14 IV: 1000ml; Total: 1000ml. ad5 10/24 01:05 IV: 1000ml; Total: 2000ml. ea Outcome: 00:54 Discharge ordered by . rn 01:04 Discharged to home ambulatory, with family. ea 01:04 Condition: stable 01:04 Discharge instructions given to patient, Instructed on discharge instructions, follow up and referral plans. medication usage, Demonstrated understanding of instructions, follow-up care, medications, Prescriptions given X 1. 01:04 Patient left the ED. chastity Signatures: Dispatcher [employer] Dolly Elena Roman, MD MD rn Antunez, Elena RN Yazmin Velazquez ea RN Rory Ghotra
[2020-10-24 02:04] VITALS: TEMP 97.9
[2020-10-24 02:08] VITALS: BP 140/80; O2SAT 99
== END 2020-10-24 01:04 | disposition home or self-care (01) ==
LOC: ER 18:26
DX: K21.00 Gastro-esophageal reflux disease with esophagitis, without bleeding (principal); F17.210 Nicotine dependence, cigarettes, uncomplicated; I10 Essential (primary) hypertension; Z20.822 Contact with and (suspected) exposure to COVID-19
CPT/HCPCS: 96361; 85025; 80048; 36415; 82565; 80076; 83690; 87804 ×2; 74177; 96375; 96374; 99284; U0003; Q9967; J2550; J2175; J7030; J2405

== ENCOUNTER 2021-01-15 10:10 | Emergency (ER) | payer OTHER ==
[2021-01-15] MEDS ORDERED: TETANUS & DIPHTHERIA TOX,ADULT 0.5 ML VIAL ONE (10:53)
[2021-01-15] MEDS ORDERED: LIDOCAINE 1% MPF 5 ML VIAL ONE (10:53)
[2021-01-15] MEDS ORDERED: BUPIVACAINE 0.5% PF 10 ML VIAL ONE (10:55)
--- NOTE | 2021-01-15 11:14 | RAD REPORT ---
EXAM DESCRIPTION: RAD - Hand Left 3 View - 01/15/2021 11:08 am CLINICAL HISTORY: thumb injury COMPARISON: No comparisons FINDINGS: Partial amputation of the tip of the first phalangeal tuft. There is some adjacent debris which may be a small bone fragments. No other fractures. IMPRESSION: Amputation of the tip of the first distal phalangeal tuft. Adjacent debris and/or tiny b one fragments.
--- NOTE | 2021-01-15 12:38 | ER ---
Nurse's Notes [facility] Name: Curtis Cantu Age: 40 yrs Sex: Male : 1980 Arrival Date: 01/15/2021 Time: 10:16 Bed 5 Private MD: Diagnosis: Left Thumbnail avulsion;Left 1st tuft fracture Presentation: 01/15 10:15 Note Registration staff called for assistance for pts laceration. Minimal bleeding tw2 noted to LEFT thumb. Gauze and pressure dressing applied. Bleeding controlled. 10:18 Chief complaint: Patient states: i was cutting the grass and cutting down a tree using tw2 a saw and i accidently cut my my LEFT tip of thumb with the saw. Coronavirus screen: At this time, the client does not indicate any symptoms associated with coronavirus-19. Ebola Screen: Patient denies travel to an Ebola-affected area in the 21 days before illness onset. Initial Sepsis Screen: Does the patient meet any 2 criteria? No. Patient's initial sepsis screen is negative. Does the patient have a suspected source of infection? No. Patient's initial sepsis screen is negative. Risk Assessment: Do you want to hurt yourself or someone else? Patient reports no desire to harm self or others. Onset of symptoms was January 15, 2021. 10:18 Method Of Arrival: Ambulatory tw2 10:18 Acuity: GEOFF 4 tw2 Triage Assessment: 10:22 General: Appears uncomfortable, Behavior is calm, cooperative, appropriate for age. tw2 Pain: Complains of pain in dorsal aspect of distal phalanx of left thumb and left thumbnail. Musculoskeletal: Range of motion: intact in all extremities. Injury Description: Laceration sustained to dorsal aspect of distal phalanx of left thumb. Historical: - Allergies: 10:25 No Known Allergies; tw2 - Home Meds: 10:21 None [Active]; tw2 - PMHx: 10:21 Anxiety; Paula's Palsy; Hypertension; tw2 - Immunization history:: Last tetanus immunization: unknown. - Social history:: Smoking status: . Screenin:25 Abuse screen: Denies threats or abuse. Nutritional screening: No deficits noted. tw2 Tuberculosis screening: No symptoms or risk factors identified. Fall Risk None identified. Assessment: 10:37 Reassessment: No changes from previously documented assessment. Patient and/or family ll1 updated on plan of care and expected duration. Pain level reassessed. Patient is alert, oriented x 3, equal unlabored respirations, skin warm/dry/pink. 11:35 Reassessment: No changes from previously documented assessment. Patient and/or family ll1 updated on plan of care and expected duration. Pain level reassessed. Patient is alert, oriented x 3, equal unlabored respirations, skin warm/dry/pink. 12:35 Reassessment: No changes from previously documented assessment. Patient and/or family ll1 updated on plan of care and expected duration. Pain level reassessed. Patient is alert, oriented x 3, equal unlabored respirations, skin warm/dry/pink. Vital Signs: 10:18 BP 135 / 95; Pulse 79; Resp 17; Temp 97.4(TE); Pulse Ox 99% on R/A; Weight 109.32 kg tw2 (R); Height 6 ft. (182.88 cm); Pain 10/10; 12:50 BP 134 / 98; Pulse 84; Resp 16; Pulse Ox 99% ; ll1 10:18 Body Mass Index 32.69 (109.32 kg, 182.88 cm) tw2 ED Course: 10:16 Patient arrived in ED. ds1 10:21 Triage completed. tw2 10:21 Arm band placed on. tw2 10:23 Marquis Moraes PA is PHCP. [facility] 10:23 Tacho Hendrix MD is Attending Physician. jmm 10:23 Kishore oCe, LEOLA is Primary Nurse. ll1 10:23 Bed in low position. Call light in reach. Adult w/ patient. tw2 10:24 Patient placed in an exam room, on a stretcher. ll1 11:08 Hand Left 3 View XRAY In Process Unspecified. EDMS 11:58 Irrigation of laceration on left thumbnail irrigated with normal saline Hibiclens ll1 solution Patient tolerated well. 12:22 Dressings: ABD pad WET TO DRY DRESSING ON LEFT THUMB. mh5 12:23 Pulse ox on. NIBP on. mh5 12:36 Rodrick Keys MD is Referral Physician. [facility] 12:51 No provider procedures requiring assistance completed. Patient did not have IV access ll1 during this emergency room visit. Administered Medications: 10:33 Drug: Tetanus-Diphtheria Toxoid Adult 0.5 ml {Clerk Analyst: [employer]. Exp: ll1 07/04/2022. Lot #: [id number]. } Route: IM; Site: right deltoid; 12:13 Follow up: Response: No adverse reaction ll1 12:13 Drug: Ancef (cefazolin) 1 grams Route: IM; Site: right gluteus; ll1 13:07 Follow up: Response: No adverse reaction 1 Outcome: 12:37 Discharge ordered by . aide 12:51 Patient left the ED. 1 12:51 Discharged to home ambulatory. 1 12:51 Condition: stable 12:51 Discharge instructions given to patient, family, Instructed on discharge instructions, follow up and referral plans. medication usage, wound care, Demonstrated understanding of instructions, follow-up care, medications, wound care, Prescriptions given X 2. Signatures: Dispatcher [employer] EDMS Marquis Moraes PA PA jmm Sanford, Demi ds1 Suad Murguia RN RN tw2 Dilcia Jalloh [facility] Kishore Coe RN RN 1 Corrections: (The following items were deleted from the chart) 10: 10:21 PMHx: TIA; tw2 tw2
--- NOTE | 2021-01-15 12:38 | EDPHYS ---
Physician Documentation [facility] Name: Curtis Cantu Age: 40 yrs Sex: Male : 1980 Arrival Date: 01/15/2021 Time: 10:16 Bed 5 Private MD: ED Physician Tacho Hendrix HPI: 01/15 12:34 This 40 yrs old Male presents to ER via Ambulatory with complaints of Finger jmm Injury - Laceration. 12:34 Associated injuries: The patient sustained left thumb. Onset: The symptoms/episode jmm began/occurred acutely, just prior to arrival. The patient has not experienced similar symptoms in the past. Historical: - Allergies: 10:25 No Known Allergies; tw2 - Home Meds: 10:21 None [Active]; tw2 - PMHx: 10:21 Anxiety; Paula's Palsy; Hypertension; tw2 - Immunization history:: Last tetanus immunization: unknown. - Social history:: Smoking status: . ROS: 12:34 Constitutional: Negative for fever, chills, and weight loss, Cardiovascular: Negative jmm for chest pain, palpitations, and edema, Respiratory: Negative for shortness of breath, cough, wheezing, and pleuritic chest pain. 12:34 MS/extremity: Positive for injury or acute deformity, pain. 12:34 All other systems are negative. Exam: 12:34 Constitutional: This is a well developed, well nourished patient who is awake, alert, jmm and in no acute distress. Head/Face: atraumatic. Eyes: EOMI, no conjunctival erythema appreciated ENT: Moist Mucus Membranes Neck: Trachea midline, Supple Chest/axilla: Normal chest wall appearance and motion. Cardiovascular: Regular rate and rhythm. No edema appreciated Respiratory: Normal respirations, no respiratory distress appreciated Abdomen/GI: Non distended, soft Back: Normal ROM Skin: General appearance color normal Neuro: Awake and alert, normal gait Psych: Behavior is normal, Mood is normal, Patient is cooperative and pleasant 12:34 Musculoskeletal/extremity: avulsion noted to the left thumbnail. 12:34 Skin: Appearance: Color: normal in color. 12:34 Neuro: Orientation: is normal, Mentation: is normal, Memory: is normal. 12:34 Psych: Behavior/mood is pleasant, cooperative. Vital Signs: 10:18 BP 135 / 95; Pulse 79; Resp 17; Temp 97.4(TE); Pulse Ox 99% on R/A; Weight 109.32 kg tw2 (R); Height 6 ft. (182.88 cm); Pain 10/10; 12:50 BP 134 / 98; Pulse 84; Resp 16; Pulse Ox 99% ; ll1 10:18 Body Mass Index 32.69 (109.32 kg, 182.88 cm) tw2 MDM: 10:52 Patient medically screened. [facility] 12:35 Data reviewed: vital signs, nurses notes. Counseling: I had a detailed discussion with [facility] the patient and/or guardian regarding: the historical points, exam findings, and any diagnostic results supporting the discharge/admit diagnosis, radiology results, the need for outpatient follow up. 01/15 10:53 Order name: Hand Left 3 View XRAY; Complete Time: 11:17 [facility] 01/15 12:22 Order name: Wound dressing; Complete Time: 12:22 [facility] Administered Medications: 10:33 Drug: Tetanus-Diphtheria Toxoid Adult 0.5 ml {[employer]: [employer]. Exp: ll1 07/04/2022. Lot #: [id number]. } Route: IM; Site: right deltoid; 12:13 Follow up: Response: No adverse reaction ll1 12:13 Drug: Ancef (cefazolin) 1 grams Route: IM; Site: right gluteus; ll1 13:07 Follow up: Response: No adverse reaction ll1 Disposition: 23:43 Co-signature as Attending Physician, Tacho Hendrix MD I agree with the assessment and kdr plan of care. Disposition Summary: 01/15/21 12:37 Discharge Ordered Location: Home [facility] Condition: Stable [facility] Diagnosis - Left Thumbnail avulsion [facility] - Left 1st tuft fracture [facility] Followup: [facility] - With: Rodrick Keys MD - When: 2 - 3 days - Reason: Recheck today's complaints, Continuance of care, Re-evaluation by your physician Discharge Instructions: - Discharge Summary Sheet [facility] - Nail Avulsion [facility] - Thumb Fracture [facility] Forms: - Medication Reconciliation Form [facility] - Thank You Letter [facility] - Antibiotic Education [facility] - Prescription Opioid Use [facility] Prescriptions: - Cephalexin 500 mg Oral Capsule - take 1 capsule by ORAL route every 6 hours for 10 days; 40 capsule; Refills: 0, jmm Product Selection Permitted - Ultracet 37.5-325 mg Oral Tablet - take 1 tablet by ORAL route every 6 hours - for up to 5 days; do not exceed 8 jmm tablets per day.; 20 tablet; Refills: 0, Product Selection Permitted Signatures: Dispatcher [employer] Tacho Ortega MD MD kdr Mickail, Joel, PA PA jmm Wise, Tara, RN RN tw2 Dilcia Jalloh [facility] Kishore Coe RN RN ll1 Corrections: (The following items were deleted from the chart) 10:22 10:21 PMHx: TIA; tw2 tw2
[2021-01-15 13:17] VITALS: BP 135/95; TEMP 97.4; O2SAT 99
== END 2021-01-15 12:51 | disposition home or self-care (01) ==
LOC: ER 10:10
DX: S68.022A Partial traumatic metacarpophalangeal amputation of left thumb, initial encounter (principal); W29.8XXA Contact with other powered hand tools and household machinery, initial encounter; Z23 Encounter for immunization
CPT/HCPCS: 90471; 90714; 96372; 99284

== ENCOUNTER 2021-08-29 12:24 | Emergency (ER) | payer OTHER ==
[2021-08-29 14:09] LABS: Absolute Lymphocytes (CBC) 1.6 K/uL (0.7-4.9); Hematocrit 44.7 % (39.6-49.0); Lymphocytes % 25.4 % (15.3-44.8); MPV 7.3 fL (7.6-11.3); RBC Red Blood Cell Count 4.94 M/uL (4.33-5.43)
[2021-08-29 14:21] LABS: Albumin 3.4 g/dL (3.4-5.0); Bilirubin Direct 0.1 mg/dL (0-0.2); Bilirubin Total 0.3 mg/dL (0.2-1.0); Magnesium 2.4 mg/dL (1.8-2.4); Potassium 3.7 mmol/L (3.5-5.1); Protein, Total 7.4 g/dL (6.4-8.2); Troponin High Sensitivity 6.9 pg/mL (<58.9)
[2021-08-29 14:46] LABS: Protime INR 1.08
--- NOTE | 2021-08-29 15:15 | RAD REPORT ---
EXAM DESCRIPTION: RAD - Chest Single View - 08/29/2021 2:59 pm CLINICAL HISTORY: CHEST PAIN COMPARISON: No comparisons FINDINGS: Lines: None. Lungs: No evidence of edema or pneumonia. Pleural: No significant pleural effusions or pneumothorax. Cardiac: The heart size is within normal limits. Bones: No acute fractures. Other: IMPRESSION: No acute cardiopulmonary disease.
[2021-08-29] MEDS ORDERED: FAMOTIDINE 20 MG/2 ML VIAL IV ONE (15:16)
--- NOTE | 2021-08-29 16:11 | RAD REPORT ---
EXAM DESCRIPTION: US - Abdomen Exam Limited - 08/29/2021 3:52 pm CLINICAL HISTORY: abdominal pain COMPARISON: Abdomen Pelvis W Contrast dated 10/23/2020 FINDINGS: Gallbladder wall thickening is likely related to underdistention. Negative for cholelithia sis. No biliary ductal dilatation. The common bile duct measures 3 millimeters. IMPRESSION: Negative for cholelithiasis or acute cholecystitis. No biliary duct dilatation.
--- NOTE | 2021-08-29 18:33 | EDPHYS ---
Physician Documentation [facility] Name: Curtis Cantu Age: 41 yrs Sex: Male : 1980 Arrival Date: 08/29/2021 Time: 13:21 Bed 12 Private MD: ED Physician Carroll Padron HPI: 08/29 13:36 This 41 yrs old Male presents to ER via Unassigned with complaints of m Shortness Of Breath, Breathing Difficulty, lump in middle of chest. 13:36 41-year-old male with no known chronic medical conditions that presents the emergency [facility] department with complaints of epigastric and lower chest pain beginning approximately 4 days ago when he was woken just acute onset shortness of breath. Patient denies diarrhea or vomiting but states having some nausea. Denies cough or fever.. ROS: 13:36 Cardiovascular: Positive for chest pain. jmm 13:36 Respiratory: Positive for shortness of breath. 13:36 Abdomen/GI: Positive for abdominal pain, nausea. 13:36 All other systems are negative. Exam: 13:36 Constitutional: This is a well developed, well nourished patient who is awake, alert, jmm and in no acute distress. Head/Face: atraumatic. Eyes: EOMI, no conjunctival erythema appreciated ENT: Moist Mucus Membranes Neck: Trachea midline, Supple Chest/axilla: Normal chest wall appearance and motion. Cardiovascular: Regular rate and rhythm. No edema appreciated Respiratory: Normal respirations, no respiratory distress appreciated Abdomen/GI: Non distended, soft Back: Normal ROM Skin: General appearance color normal MS/ Extremity: Moves all extremities, no obvious deformities appreciated, no edema noted to the lower extremities Neuro: Awake and alert Psych: Behavior is normal, Mood is normal, Patient is cooperative and pleasant Vital Signs: 14:15 BP 144 / 88; Pulse 87; Resp 16; Pulse Ox 98% ; iw MDM: 13:[address] [facility] 18:29 Immunization status:. Data reviewed: vital signs, nurses notes. Counseling: I had a [facility] detailed discussion with the patient and/or guardian regarding: the historical points, exam findings, and any diagnostic results supporting the discharge/admit diagnosis, lab results, radiology results, the need for outpatient follow up, to return to the emergency department if symptoms worsen or persist or if there are any questions or concerns that arise at home. ED course: Patient states feeling much better. Patient advised to follow up with pcp and otherwise given strict return precautions. patient understood and agrees with the plan of care. . 08/29 13:36 Order name: Basic Metabolic Panel; Complete Time: 15:32 [facility] 08/29 13:36 Order name: CBC with Diff; Complete Time: 14:57 [facility] 08/29 13:36 Order name: D-Dimer; Complete Time: 14:57 [facility] 08/29 13:36 Order name: LFT's; Complete Time: 15:32 [facility] 08/29 13:36 Order name: Magnesium; Complete Time: 15:32 [facility] 08/29 13:36 Order name: NT PRO-BNP; Complete Time: 15:32 [facility] 08/29 13:36 Order name: PT-INR; Complete Time: 14:57 [facility] 08/29 13:36 Order name: Troponin HS; Complete Time: 15:32 [facility] 08/29 13:36 Order name: XRAY Chest (1 view); Complete Time: 15:32 [facility] 08/29 13:36 Order name: EKG; Complete Time: 13:37 [facility] 08/29 15:10 Order name: US Abdomen Limited; Complete Time: 16:21 [facility] 08/29 15:17 Order name: Lipase; Complete Time: 15:32 [facility] 08/29 13:36 Order name: Cardiac monitoring; Complete Time: 13:51 [facility] 08/29 13:36 Order name: EKG - Nurse/Tech; Complete Time: 13:51 [facility] 08/29 13:36 Order name: IV Saline Lock; Complete Time: 13:51 [facility] 08/29 13:36 Order name: Labs collected and sent; Complete Time: 13:51 [facility] 08/29 13:36 Order name: O2 Per Protocol; Complete Time: 15:06 [facility] 08/29 13:36 Order name: O2 Sat Monitoring; Complete Time: 15:06 [facility] Administered Medications: 15:18 Drug: Pepcid (famotidine) 20 mg Route: IVP; Site: right antecubital; jb4 Disposition Summary: 08/29/21 18:32 Discharge Ordered Location: Home [facility] Condition: Stable [facility] Diagnosis - Epigastric pain jmm - Chest pain, unspecified [facility] Followup: [facility] - With: Aniceto Somers MD - When: 2 - 3 days - Reason: Recheck today's complaints, Continuance of care, Re-evaluation by your physician Followup: [facility] - With: Vasiliy Bonner MD - When: 2 - 3 days - Reason: Recheck today's complaints, Continuance of care, Re-evaluation by your physician Discharge Instructions: - Discharge Summary Sheet jmm - Abdominal Pain, Adult jmm - Nonspecific Chest Pain, Adult jmm - Gastritis, Adult jmm Forms: - Medication Reconciliation Form [facility] - Thank You Letter [facility] - Antibiotic Education [facility] - Prescription Opioid Use [facility] Prescriptions: - Pepcid 20 mg Oral Tablet - take 1 tablet by ORAL route every 12 hours As needed; 30 tablet; Refills: 0, [facility] Product Selection Permitted - Carafate 1 gram Oral Tablet - take 2 tablets by ORAL route every 12 hours take on an empty stomach, beginning jmm on waking and last dose at bedtime; 60 tablet; Refills: 0, Product Selection Permitted Addendum: 08/31/2021 23:55 Co-signature as Attending Physician, Carroll Padron MD. r n Signatures: Dispatcher [employer] EDMS Marquis Moraes PA PA [facility] Carroll Padron MD MD rn Bryson, James, RN RN jb4 Corrections: (The following items were deleted from the chart) 08/29 15:16 15:11 LIPASE+C.LAB.BRZ ordered. EDIA EDMS
--- NOTE | 2021-08-29 18:33 | ER ---
Nurse's Notes [facility] Name: Curtis Cantu Age: 41 yrs Sex: Male : 1980 Arrival Date: 08/29/2021 Time: 13:21 Bed 12 Private MD: Diagnosis: Epigastric pain;Chest pain, unspecified Presentation: 08/29 14:08 Acuity: GEOFF 3 iw Vital Signs: 14:15 BP 144 / 88; Pulse 87; Resp 16; Pulse Ox 98% ; iw ED Course: 13:21 Patient arrived in ED. am2 13:22 Marquis Moraes PA is PHCP. m 13:22 Carroll Padron MD is Attending Physician. jmm 13:51 Basic Metabolic Panel Sent. mb7 13:51 CBC with Diff Sent. mb7 13:51 D-Dimer Sent. mb7 13:51 Troponin HS Sent. mb7 13:51 LFT's Sent. mb7 13:51 Magnesium Sent. mb7 13:51 NT PRO-BNP Sent. mb7 13:52 PT-INR Sent. mb7 13:52 Inserted saline lock: 20 gauge in right antecubital area, using aseptic technique. mb7 Blood collected. 13:52 EKG done, by ED staff, reviewed by Marquis VEGA. mb7 14:08 Triage completed. iw 14:10 Patient has correct armband on for positive identification. mb7 14:11 Norma Carrasco, RN is Primary Nurse. iw 15:01 XRAY Chest (1 view) In Process Unspecified. EDMS 15:54 US Abdomen Limited In Process Unspecified. EDMS 18:31 Aniceto Somers MD is Referral Physician. jmm 18:31 Vasiliy Bonner MD is Referral Physician. [facility] Administered Medications: 15:18 Drug: Pepcid (famotidine) 20 mg Route: IVP; Site: right antecubital; jb4 Outcome: 18:32 Discharge ordered by . jmm 19:21 Patient left the ED. iw 19:22 Discharged to home ambulatory. iw 19:22 Condition: good 19:22 Discharge instructions given to patient. Signatures: Dispatcher [employer] EDMS Marquis Moraes PA PA Norma Kennedy, RN RN iw Steve Alvarez RN RN jb4 Dora You am2 Enrike, Dolly 7
[2021-08-29 19:48] VITALS: BP 144/88; O2SAT 98
--- NOTE | 2021-09-03 07:57 | EKG ---
Test Date: 2021-08-29 Test Time: 13:48:30 Chief Technical Officer: DOUG MEASUREMENT RESULTS: Intervals: Rate: 72 VA: 148 QRSD: 90 QT: 382 QTc: 418 Allen: P: 20 VA: 148 QRS: 15 T: 144 INTERPRETIVE STATEMENTS: Normal sinus rhythm Nonspecific T wave abnormality Abnormal ECG No previous ECG available for comparison Electronically Signed On 09-03-21 07:51:02 CDT by Marques Durant
== END 2021-08-29 19:21 | disposition home or self-care (01) ==
LOC: ER 12:24
DX: R07.9 Chest pain, unspecified (principal); R11.0 Nausea
CPT/HCPCS: 93005; 85025; 80048; 36415; 83735; 85610; 85379; 80076; 84484; 83690; 83880; 71045; 76705; 96374; 99284; J3490